=== PATIENT | male | born 1960 | race Caucasian/White ===

== ENCOUNTER 2018-09-03 18:19 | Emergency (ER) | payer OTHER, SELFPAY ==
[2018-09-03 18:22] VITALS: BP 156/88; PULSE 84; RESP 17; TEMP 36.8; O2SAT 94; BMI 42.5
--- NOTE | 2018-09-03 18:50 | ED.DCSUM_ITS ---
- ER Visit Summary Date of Service: 09/03/18 Chief Complaint: [] Left eye injury related to liquid urethane History of Present Illness: The patient is a 58 M [] ports was working with liquid urethane he was wearing protective glasses he states with a liquid which was hot leaked around the glasses and cause injury to the tissue around his brow and his upper lid and lower lid, he indicates his eye was closed no liquid urethane got into the eye, indicates his vision is normal he has no eye pain no photophobia he presents for evaluation no ocular history and no other history Physical Examination: [] Acuity is 20/20 left eye the rest of his vitals are unremarkable Redness and irritation around the left periorbital area involving the brow the left upper lid the lower lid, he denies foreign body sensation is able to blink and open his eyes and move his eyes without pain General, no distress resting comfortably HEENT is generally unremarkable, except as above, the left eye the conjunctiva is injected, there appears to be a semicircular area of the blister at least or foreign body involving the cornea at the 7 to 9 o'clock position, anterior chambers intact pupil reacts well vision is normal, tetracaine fluorescein slit- lamp examination shows uptake to this area only but no obvious break to the cornea no streaming of aqueous and again anterior chambers normal extraocular muscles are normal pupil reacts well, the associated periorbital tissue appears to have a partial thickness burn, there may be some dry urethane over the lashes of the upper lid none involving the lower lid The neck is supple no adenopathy Cardiovascular, regular rate and rhythm Lungs, clear bilateral Abdomen, soft nontender Extremities, no clubbing cyanosis or edema Neurologic, awake alert answering questions appropriately moving all 4 extremities Test Results: [] Emergency Department Course and Treatment: [] Time the patient underwent copious irrigation with lactated Ringer's using Dash lens we will discuss case with ophthalmology Treatment Plan: [] Patient was irrigated with 1 L of lactated Ringer's with no difficulty, on reevaluation his exam is unremarkable, we spoke with Dr. Haley ophthalmology on-call for ophthalmology discussed case with detail agreed with the management as above the patient be seen in the office tomorrow him erythromycin ointment now wound care over the eye and the patient understands need follow-up ophthalmology for further management tomorrow he will do so The patient's Worker's Comp. and paperwork were completed Disposition: [] Home stable Impression: [] Left eye injury, left corneal injury This note was generated with [employer] dictation software. It may contain incorrect words, spelling, and punctuation that were not noted in review of the chart prior to signing ED Disposition - Plan for ED Patient: Referrals: Autumn Renee [Primary Care Provider] -
--- NOTE | 2018-09-03 20:02 | ED.DEP ---
ED Disposition - Plan for ED Patient: Instructions: ED Chemical Conjunctivitis, ED Ulcer Cornea Referrals: Autumn Renee [Primary Care Provider] - Additional Instructions: Use the eye ointment every 4-6 hours, follow-up tomorrow with ophthalmology call for a time [phone]
[2018-09-03] MEDS: Erythromycin Base 1 OPTH.TUBE 1 APPLIC LEFT EYE (20:22)
[2018-09-03 21:10] VITALS: PULSE 91; RESP 22; O2SAT 97
--- NOTE | 2018-09-03 21:10 | ED.RN ---
THIS NURSE REVIEWED D/C INSTRUCTIONS WITH PT. PT VERBALIZED UNDERSTANDING OF INSTRUCTIONS. PT DENIES FURTHER NEEDS OR QUESTIONS AT THIS TIME
== END 2018-09-03 21:11 | disposition home or self-care (01) ==
LOC: ED 18:59
PROVIDERS: Emergency Provider Emergency Medicine; Family Provider Family Medicine; PCP Family Medicine
DX: S05.8X2A Other injuries of left eye and orbit, initial encounter (principal); Y99.0 Civilian activity done for income or pay; Y93.89 Activity, other specified; Y92.89 Other specified places as the place of occurrence of the external cause
CPT/HCPCS: 99284; J7120